=== PATIENT | female | born 2000 | race Two or more races ===

== ENCOUNTER 2021-05-07 02:45 | Emergency (ER) | payer SELFPAY ==
[~2021-05-07] VITALS: Ht 165.1 cm; Wt 65.0 kg
[2021-05-07 03:03] VITALS: BP 123/79
[2021-05-07] MEDS ORDERED: NALO4SPR BOTHNSTRLS (03:19)
[2021-05-07] MEDS ORDERED: NALOXONE HCL 0.4 MG/ML 1ML VIAL IM ONE (03:30)
== END 2021-05-07 04:03 | disposition home or self-care (01) ==
LOC: ER 02:45
DX: T39.1X1A Poisoning by 4-Aminophenol derivatives, accidental (unintentional), initial encounter (principal); R55 Syncope and collapse; Y92.018 Other place in single-family (private) house as the place of occurrence of the external cause
CPT/HCPCS: 96372; 99283; J2310